=== PATIENT | female | born 1970 | race Asian ===

== ENCOUNTER 2018-02-20 11:58 | Emergency (ER) | payer BC ==
[~2018-02-20] VITALS: Ht 157.5 cm; Wt 47.3 kg
[2018-02-20 12:02] VITALS: BP 108/67
== END 2018-02-20 13:32 | disposition home or self-care (01) ==
LOC: ED 13:15
DX: S92.912A Unspecified fracture of left toe(s), initial encounter for closed fracture (principal); X58.XXXA Exposure to other specified factors, initial encounter; Y93.89 Activity, other specified; Y92.009 Unspecified place in unspecified non-institutional (private) residence as the place of occurrence of the external cause; Y99.8 Other external cause status
CPT/HCPCS: 99284